=== PATIENT | female | born 1990 | race Caucasian/White ===

== ENCOUNTER 2017-06-07 02:35 | Outpatient (CLI) | END 2017-06-07 06:10 | disposition home or self-care (01) ==

== ENCOUNTER 2017-09-07 22:56 | Outpatient (CLI) | END 2017-09-08 03:20 | disposition home or self-care (01) ==

== ENCOUNTER 2017-09-14 17:10 | Outpatient (CLI) | END 2017-09-14 18:50 | disposition home or self-care (01) ==

== ENCOUNTER 2017-09-16 06:32 | Inpatient (IN) | END 2017-09-18 16:16 | disposition home or self-care (01) | DRG 775 ==

== ENCOUNTER 2018-04-10 10:07 | Emergency (ER) | END 2018-04-10 12:16 | disposition home or self-care (01) ==